=== PATIENT | female | born 1965 | race American Indian/Alaskan Native ===

== ENCOUNTER 2018-05-10 23:15 | Observation (INO) | payer MEDICAID ==
--- NOTE | 2018-05-10 23:55 | Emergency Department Report ---
HPI - General Chief Complaint: Altered Mental Status Time Seen by Provider: 05/10/18 23:41 - HPI HPI: Room 2 The patient is a 52-year-old female presenting with a chief complaint of altered mental status/seizure. The patient was in her usual state of health all day. Family member states that the patient had driven her home at approximately 21:00 and was her normal self. The family member went into the house while the patient remained in the car (family states that this is not unusual). Family states approximately one hour later EMS came to the door and asked her to come out. The patient was found still sitting in the car with decreased responsiveness. EMS felt the patient out of the car when she then collapsed and had a generalized tonic-clonic seizure for several seconds. The patient has a history of end-stage renal disease and states that she was last dialyzed 04/07/2018. Family states they do not believe this is true. Patient has never had a history of seizures Location: Mental state, [facility] Duration: [See above] Quality: Generalized tonic-clonic Severity: Moderate Modifying factors: [see above] Context: [see above] Mode of transportation: [not driving] ED Past Medical Hx - Past Medical History Previous Medical History?: Yes Hx Hypertension: Yes Hx Diabetes: Yes Hx Renal Disease: Yes (HD MWF) - Surgical History Past Surgical History?: No Additional Surgical History: Right groin Vas-cath - Family History Family history: no significant - Social History Smoking Status: Current Every Day Smoker Substance Use Type: Marijuana ED Review of Systems ROS: Stated complaint: SEIZURE/AMS Other details as noted in HPI Constitutional: no symptoms reported Eyes: denies: eye pain ENT: denies: throat pain Respiratory: no symptoms reported Cardiovascular: denies: chest pain Endocrine: no symptoms reported Gastrointestinal: denies: abdominal pain Genitourinary: denies: dysuria Musculoskeletal: denies: back pain Neurological: other (seizure). denies: headache Physical Exam - Physical Exam Vital Signs: Vital Signs 05/10/18 23:27 Temperature 98.3 F Pulse Rate 79 Respiratory 20 Rate Blood Pressure 151/106 O2 Sat by Pulse 97 Oximetry Physical Exam: GENERAL: The patient is well-developed well-nourished female lying on stretcher sleeping appearing slightly postictal. Able to awaken patient easily with tactile stimuli HEENT: Normocephalic. Atraumatic. Extraocular motions are intact. Patient has moist mucous membranes. NECK: Supple. Trachea midline CHEST/LUNGS: Clear to auscultation. There is no respiratory distress noted. HEART/CARDIOVASCULAR: Regular. There is no tachycardia. There is no gallop rub or murmur. ABDOMEN: Abdomen is soft, nontender. Patient has normal bowel sounds. There is no abdominal distention. SKIN: There is no rash. There is no edema. There is no diaphoresis. NEURO: The patient is awake, but slightly postictal and oriented. The patient is cooperative. The patient has no focal neurologic deficits. The patient has normal speech and gait. MUSCULOSKELETAL: There is no evidence of acute injury. ED Course Vital Signs 05/10/18 23:27 Temperature 98.3 F Pulse Rate 79 Respiratory 20 Rate Blood Pressure 151/106 O2 Sat by Pulse 97 Oximetry ED Medical Decision Making - Lab Data Result diagrams: 05/10/18 23:51 05/10/18 23:51 Laboratory Tests 05/10/18 05/10/18 05/10/18 23:51 23:51 23:51 WBC 9.7 RBC 4.62 Hgb 13.9 Hct 41.3 MCV 89 MCH 30 MCHC 34 RDW 13.3 Plt Count 253 Lymph # Sheet Heater Helper Sodium 142 Potassium 3.9 Chloride 102.1 Carbon Dioxide 26 Anion Gap 18 BUN 14 Creatinine 0.9 Estimated GFR > 60 BUN/Creatinine Ratio 16 Glucose 143 H Calcium 8.8 Magnesium Total Bilirubin < 0.20 AST 15 ALT 16 Alkaline Phosphatase 81 Total Creatine Kinase CK-MB (CK-2) CK-MB (CK-2) Rel Index Troponin T Total Protein 6.6 Albumin 3.9 Albumin/Globulin Ratio 1.4 TSH 2.110 Plasma/Serum Alcohol 05/10/18 05/10/18 23:51 23:51 WBC RBC Hgb Hct MCV MCH MCHC RDW Plt Count Lymph # Sodium Potassium Chloride Carbon Dioxide Anion Gap BUN Creatinine Estimated GFR BUN/Creatinine Ratio Glucose Calcium Magnesium 1.90 Total Bilirubin AST ALT Alkaline Phosphatase Total Creatine Kinase 164 H CK-MB (CK-2) 1.1 CK-MB (CK-2) Rel Index 0.6 Troponin T < 0.010 Total Protein Albumin Albumin/Globulin Ratio TSH Plasma/Serum Alcohol < 0.01 - EKG Data -: EKG Interpreted by Ri EKG shows normal: sinus rhythm Rate: normal - EKG Data When compared to previous EKG there are: previous EKG unavailable Interpretation: other (no ischemic changes seen) - Radiology Data Radiology results: report reviewed (CT head), image reviewed (CT head) interpreted by me: Final diagnoses should also include Altered mental status CT head (read by radiologist) - normal examination - Differential Diagnosis ICH, seizure, electrolyte imbalance, uremia Critical care attestation.: If time is entered above; I have spent that time in minutes in the direct care of this critically ill patient, excluding procedure time. ED Disposition Clinical Impression: Seizure Disposition: [id number] OP ADMIT IP TO THIS HOSP Is pt being admited?: Yes Does the pt Need Aspirin: Yes Condition: Fair Time of Disposition: 02:05 (hospitalist paged (Dr. Sandi Angulo))
[2018-05-10] MEDS ORDERED: KEPPRA 1,000 MG/NS 0.75% 100ML 1,000 MG/100 ML BAG IV ONE (23:56)
[2018-05-11 00:24] LABS: Creatine Kinase MB 1.1 ng/mL (0.0-4.0)
[2018-05-11 00:28] LABS: Alanine Aminotransferase 16 units/L (7-56); Albumin 3.9 g/dL (3.9-5); BUN/Creatinine Ratio 16; Blood Urea Nitrogen 14 mg/dL (7-17); Calcium 8.8 mg/dL (8.4-10.2); Hemolysis Index 12
[2018-05-11 01:07] LABS: Hematocrit 41.3 % (30.3-42.9); Hemoglobin 13.9 gm/dl (10.1-14.3); Mean Corpuscular HGB Conc 34 % (30-34); Mean Corpuscular Hemoglobin 30 pg (28-32); Mean Corpuscular Volume 89 fl (79-97); Platelet Count 253 K/mm3 (140-440); Red Blood Count 4.62 M/mm3 (3.65-5.03); Red Cell Distribution Width 13.3 % (13.2-15.2)
--- NOTE | 2018-05-11 02:01 | Cat Scan Report ---
FINAL REPORT PROCEDURE: CT HEAD/BRAIN WO CON TECHNIQUE: Computerized tomography of the head was performed without contrast material. HISTORY: altered mental status, new onset seizure COMPARISON: No prior studies are available for comparison. FINDINGS: Skull and scalp: Normal. Paranasal sinuses: Normal. Ventricles and subarachnoid spaces: Normal. Cerebrum: No evidence of hemorrhage, acute infarction or mass . Cerebellum and brainstem: No evidence of hemorrhage, acute infarction or mass. Vasculature: Normal. Comments: None. IMPRESSION: Normal Examination
[2018-05-11] MEDS ORDERED: ASPIRIN PO ONE (02:06)
[2018-05-11 02:30] LABS: Basophils % (Manual) 0 % (0.0-1.8); Platelet Estimate Consistent w Auto; Total Cells Counted 100
--- NOTE | 2018-05-11 03:14 | History and Physical Report ---
History of Present Illness Date of examination: 05/11/18 History of present illness: 52-year-old woman with a history hypertension, diabetes, end-stage renal disease on dialysis Friday, Friday, Friday was brought to the emergency room by her 2 daughters because she had a seizure at home. EMS found her in the car , she was in there for at least an hour. Patient is unable to give a history, she is very sleepy. Review of systems unobtainable PAST MEDICAL HISTORY: history hypertension, diabetes, end-stage renal disease on dialysis PAST SURGICAL HISTORY: None SOCIAL HISTORY: No alcohol, no drugs,+ tobacco FAMILY HISTORY: Hypertension Medications and Allergies Allergies Allergy/AdvReac Type Severity Reaction Status Date / Time No Known Allergies Allergy Unverified 05/10/18 23:26 Home Medications Medication Instructions Recorded Confirmed Last Taken Type Unobtainable 05/11/18 05/11/18 Unknown History Exam - Physical Exam Narrative exam: Gen. appearance: Patient lying in bed, no apparent distress HEENT: Normocephalic, atraumatic, pupils equally round and reactive to light, extraocular movement intact, and no sclericterus,. No JVD or thyromegaly or nodule,neck supple, no carotid bruit ,mucous membranes moist, no exudate or erythema Heart: S1, S2, regular rate and rhythm Lungs: Clear bilaterally, breathing comfortable Abdomen: Positive bowel sounds, non-tender, nondistended, no organomegaly Extremity:no edema cyanosis, clubbing Skin: no rash, dry, warm Neuro: sedated - Constitutional Vitals: Temp Pulse Resp BP Pulse Ox 98.3 F 78 20 122/70 98 05/10/18 23:27 05/11/18 01:21 05/11/18 01:21 05/11/18 01:21 05/11/18 01:21 Results - Labs CBC & Chem 7: 05/11/18 04:05 05/11/18 04:05 Labs: Abnormal lab results 05/10/18 05/10/18 Range/Units 23:51 23:51 Glucose 143 H (65-100) mg/dL Total Creatine Kinase 164 H (30-135) units/L - Imaging and Cardiology CT Scan - head: report reviewed Assessment and Plan Assessment New-onset seizure Hypertension Diabetes "End-stage renal disease" Plan Admit medicine Start IV Ativan as needed for seizure, consult neurology Check fingersticks and initiate insulin sliding scale Suspect malingering, no signs of renal failure by labs DVT prophylaxis
[2018-05-11] MEDS ORDERED: TYLENOL PO PRN (03:15)
[2018-05-11] MEDS ORDERED: ZOFRAN IV PRN (03:15)
[2018-05-11] MEDS ORDERED: SODIUM CHLORIDE FLUSH SYRINGE 10 ML IV PRN (03:15)
[2018-05-11] MEDS ORDERED: ATIVAN IV PRN (03:19)
[2018-05-11 04:28] LABS: Hematocrit 40.7 % (30.3-42.9); Hemoglobin 13.6 gm/dl (10.1-14.3); Mean Corpuscular HGB Conc 34 % (30-34); Mean Corpuscular Hemoglobin 30 pg (28-32); Mean Corpuscular Volume 89 fl (79-97); Platelet Count 240 K/mm3 (140-440); Red Blood Count 4.58 M/mm3 (3.65-5.03); Red Cell Distribution Width 13.4 % (13.2-15.2)
[2018-05-11 04:31] LABS: Bilirubin,Urine NEG (Negative); Blood,Urine NEG (Negative); Color,Urine Yellow (Yellow); Mucus,Urine 1+ /HPF; Protein,Urine <15 mg/dL mg/dL (Negative); Urobilinogen,Urine < 2.0 mg/dL (<2.0)
[2018-05-11] MEDS ORDERED: D50W (25GM) Syringe IV PRN (04:34)
[2018-05-11 04:35] LABS: BUN/Creatinine Ratio 16; Blood Urea Nitrogen 13 mg/dL (7-17); Calcium 8.6 mg/dL (8.4-10.2); Hemolysis Index 2
[2018-05-11 04:40] LABS: Amphetamine Screen,Urine PRESUMPTIVE NEGATIVE; Cocaine Screen,Urine PRESUMPTIVE NEGATIVE; Methadone Screen,Urine PRESUMPTIVE NEGATIVE; Opiate Screen,Urine PRESUMPTIVE NEGATIVE
[2018-05-11 04:57] LABS: Benzodiazepines Screen,Urine PRESUMPTIVE POSITIVE; Cannabinoid Screen,Urine PRESUMPTIVE POSITIVE
[2018-05-11 05:42] LABS: Platelet Estimate Consistent w Auto; Total Cells Counted 100
[2018-05-11] MEDS: LOVENOX SUB-Q SCH (10:00)
[2018-05-11] MEDS: SODIUM CHLORIDE FLUSH SYRINGE 10 ML IV SCH ×2 (10:00→21:20)
--- NOTE | 2018-05-11 15:42 | Consultation ---
History of Present Illness Consult date: 05/11/18 Requesting physician: ALYSE TEMPLETON Reason for Consult: new onset seizure History of present illness: This is a 52 year old female whowas in her usual stat of health on 05/10/18, running errands and taking care of family. After dropping children off she remained in her car for a long time. Neighbors noticed that she was sitting in the car a long time. They went to check on her and found her unresponsive. They called EMS who tried to get her out of the car. She collapsed, then had generalized seizure. The patient has a history of hypertension and diabetes. She states that she started dialysis one month ago. Laboratory studies, however , are within normal limits. Blood sugar was slightly elevated, BP was 150/106 on admission. The patient complained of headache for the past week. There is no previous history of seizures and no family history of epilepsy. Admission CT was neg. for abnormality, Urine toxicology screen is positive for benzodiazepines. Patient states she takes Valium for anxiety. She does not know the name of her other medications. Past History Past Medical History: diabetes, hypertension Social history: lives with family, smoking (smokes 1/2 PPD for 30 years) Family history: diabetes, hypertension Medications and Allergies Allergies Allergy/AdvReac Type Severity Reaction Status Date / Time No Known Allergies Allergy Unverified 05/10/18 23:26 Home Medications Medication Instructions Recorded Confirmed Last Taken Type Unobtainable 05/11/18 05/11/18 Unknown History Active Meds: Active Medications Acetaminophen (Tylenol) 650 mg PO Q4H PRN PRN Reason: Pain MILD(1-3)/Fever >100.5/FLOWERS Dextrose (D50w (25gm) Syringe) 50 ml IV PRN PRN PRN Reason: Hypoglycemia Enoxaparin Sodium (Lovenox) 40 mg SUB-Q QDAY [facility] Last Admin: 05/11/18 10:00 Dose: Not Given Lorazepam (Ativan) 1 mg IV Q4H PRN PRN Reason: Seizures Ondansetron HCl (Zofran) 4 mg IV Q8H PRN PRN Reason: Nausea And Vomiting Sodium Chloride (Sodium Chloride Flush Syringe 10 Ml) 10 ml IV BID [facility] Last Admin: 05/11/18 10:00 Dose: Not Given Sodium Chloride (Sodium Chloride Flush Syringe 10 Ml) 10 ml IV PRN PRN PRN Reason: LINE FLUSH Review of Systems Constitutional: no weight loss, no weight gain, no fever, no chills, no anorexia , no fatigue, no weakness Ears, nose, mouth and throat: no tinnitis, no decreased hearing, no nasal congestion Cardiovascular: lightheadedness, no chest pain, no palpitations, no rapid/ irregular heart beat, no edema, no syncope Respiratory: no cough, no shortness of breath Gastrointestinal: no abdominal pain, no nausea, no vomiting, no diarrhea, no constipation Genitourinary Female: urinary frequency, no dysuria, no urgency, no stress incontinence Musculoskeletal: no neck stiffness, no neck pain, no arm numbness/tingling, no leg numbness/tingling Integumentary: no rash Neurological: seizures, syncope, vertigo, headaches, no head injury, no weakness , no parathesias, no numbness, no tingling, no tremors, no ataxia, no lack of coordination Physical Examination - Vital Signs Vital Signs: Vital Signs Temp Pulse Resp BP Pulse Ox 98.3 F 79 20 151/106 97 05/10/18 23:27 05/10/18 23:27 05/10/18 23:27 05/10/18 23:27 05/10/18 23:27 - Physical Exam Narrative exam: Resting comfortably in bed. Wanting to go home. Became dizzy when sitting on side of bed. HEENT - no inflamation or lesions. neck supple Chest - clear to auscultation. Heart - nl S-1, S-2. no extra sounds. Abdomen - soft, nontender, no masses. Extremities - no CCE Neurologiic exam - speech fluent, oriented times 3. luggage attendant - EOMs full, no nystagmus. Face symmetric, tongue midline, hearing intact. Motor - 5/5 bilaterally. Reflexes - +1 throughout. Sensory - intact to touch and pin. Cerebellar - intact finger to nose, fine finger movements, Kelley. Results - Laboratory Findings CBC and BMP: 05/11/18 04:05 05/11/18 04:05 Abnormal Lab Findings: Abnormal Labs 05/10/18 05/10/18 05/11/18 23:51 23:51 04:05 Lymphocytes % (Manual) 53.0 H Glucose 143 H Total Creatine Kinase 164 H 05/11/18 04:05 Lymphocytes % (Manual) Glucose 134 H Total Creatine Kinase Assessment and Plan 52 year old female with history of hypertension and diabetes, presents with new onset seizure. History of headache for the past week. History of anxiety. Bloodwork in acceptable ranges. Plan - Will check MRI to rule out mass.
[2018-05-11] MEDS: HumaLOG SUB-Q SCH (21:19)
[2018-05-12 06:14] LABS: Chol/HDL Ratio 6.31 %
[2018-05-12] MEDS: HumaLOG SUB-Q SCH ×3 (07:30→16:30)
[2018-05-12] MEDS: SODIUM CHLORIDE FLUSH SYRINGE 10 ML IV SCH (10:00)
[2018-05-12] MEDS: LOVENOX SUB-Q SCH (10:00)
[2018-05-12 13:11] VITALS: BP 156/99
--- NOTE | 2018-05-12 15:37 | Progress Note ---
Assessment and Plan 52 year old female with history of hypertension and diabetes, presents with new onset seizure. History of headache for the past week. History of anxiety. Bloodwork and blood pressure in acceptable ranges without medication. Patient states that she is claustraphobic and would rather not do MRI scan. Because of the seizure I would still like to get a better imaging study than noncontrast CT. Plan -Will order CT with contrast. Subjective Date of service: 05/12/18 Principal diagnosis: new onset seizure Interval history: Feeling better. Less dizzy when up. Her story keeps changing. Today she says she does not take pills but smokes marijuana for pain control. Denies taking anything on day of admission. Objective - Exam Narrative Exam: Resting comfortably in bed. HEENT - no inflamation or lesions. neck supple Chest - clear to auscultation. Heart - nl S-1, S-2. no extra sounds. Abdomen - soft, nontender, no masses. Extremities - no CCE Neurologiic exam - speech fluent, oriented times 3. chemical operations and training - EOMs full, no nystagmus. Face symmetric, tongue midline, hearing intact. Motor - 5/5 bilaterally. Reflexes - +1 throughout. Sensory - intact to touch and pin. Cerebellar - intact finger to nose, fine finger movements, Kelley. - Vital Sign Vital Signs - 12hr 05/12/18 05/12/18 05/12/18 05:05 10:15 12:45 Temperature 97.7 F 99.2 F Pulse Rate 63 76 Respiratory 16 20 Rate Blood Pressure 138/81 156/99 O2 Sat by Pulse 100 99 93 Oximetry - Laboratory Findings CBC and BMP: 05/11/18 04:05 05/11/18 04:05 Abnormal Lab Findings: Abnormal Labs 05/10/18 05/10/18 05/11/18 23:51 23:51 04:05 Lymphocytes % (Manual) 53.0 H Glucose 143 H POC Glucose Hemoglobin A1c Total Creatine Kinase 164 H Triglycerides Cholesterol LDL Cholesterol Direct 05/11/18 05/11/18 05/12/18 04:05 21:17 04:55 Lymphocytes % (Manual) Glucose 134 H POC Glucose 148 H Hemoglobin A1c 7.0 H Total Creatine Kinase Triglycerides Cholesterol LDL Cholesterol Direct 05/12/18 05/12/18 05/12/18 04:55 08:08 12:00 Lymphocytes % (Manual) Glucose POC Glucose 120 H 140 H Hemoglobin A1c Total Creatine Kinase Triglycerides 172 H Cholesterol 259 H LDL Cholesterol Direct 217 H
--- NOTE | 2018-05-12 15:54 | Progress Note ---
Assessment and Plan Assessment and plan: Patient is a 52 yo woman with a history of hypertension, DM type 2 and ESRD on hemodialysis MWF who presents with AMS and new seizures. EMS found her in the car, she was in there for at least an hour. Assessment New-onset seizure Hypertension Diabetes "End-stage renal disease" Plan Admit medicine Start IV Ativan as needed for seizure, consult neurology Check fingersticks and initiate insulin sliding scale Suspect malingering, no signs of renal failure by labs DVT prophylaxis History Interval history: Patient was seen and examined. Follow-up on current diagnosis of sz, resolved. Overnight uneventful. Patient denies any chest pain, shortness breath, nausea/ vomiting or severe headaches. Imaging, nursing note, chart, labs and old chart reviewed. Discussed with patient. She really doesn't want MRI due to severe claustrophobia, "I don't wanna go in that box!" Counseling and Education done. Hospitalist Physical - Physical exam Narrative exam: GEN: WDWN, NAD, Awake, Alert, Orientated x 3 HEENT: NCAT, EOMI, PERRL, OP Clear NECK: supple, no adenopathy, no thyromegaly, no JVD CVS/HEART: RRR, normal S1S2, pulses present bilaterally CHEST/LUNGS: CTA B, Symmetrical chest expansion, good air entry bilaterally GI/Abdomen: soft, NTND, good bowel sounds, no guarding or rebound /Bladder: no suprapubic tenderness, no CVA or paraspinal tenderness EXT/Skin: no c/c/e, no obvious rash MSK: FROM x 4 Neuro: CN 2-12 grossly intact, no new focal deficits Psych: calm - Constitutional Vitals: Temp Pulse Resp BP Pulse Ox 99.2 F 76 20 156/99 93 05/12/18 12:45 05/12/18 12:45 05/12/18 12:45 05/12/18 12:45 05/12/18 12:45 Results - Labs CBC & Chem 7: 05/11/18 04:05 05/11/18 04:05 Labs: Laboratory Last Values WBC 10.0 K/mm3 (4.5-11.0) 05/11/18 04:05 RBC 4.58 M/mm3 (3.65-5.03) 05/11/18 04:05 Hgb 13.6 gm/dl (10.1-14.3) 05/11/18 04:05 Hct 40.7 % (30.3-42.9) 05/11/18 04:05 MCV 89 fl (79-97) 05/11/18 04:05 MCH 30 pg (28-32) 05/11/18 04:05 MCHC 34 % (30-34) 05/11/18 04:05 RDW 13.4 % (13.2-15.2) 05/11/18 04:05 Plt Count 240 K/mm3 (140-440) 05/11/18 04:05 Lymph % (Auto) Television [employer]ducer 05/11/18 04:05 Lymph # Television [employer] Producer 05/11/18 04:05 Add Manual Diff Complete 05/11/18 04:05 Total Counted 100 05/11/18 04:05 Seg Neuts % (Manual) 41.0 % (40.0-70.0) 05/11/18 04:05 Band Neutrophils % 0 % 05/11/18 04:05 Lymphocytes % (Manual) 53.0 % (13.4-35.0) H 05/11/18 04:05 Reactive Lymphs % (Man) 0 % 05/11/18 04:05 Monocytes % (Manual) 3.0 % (0.0-7.3) 05/11/18 04:05 Eosinophils % (Manual) 2.0 % (0.0-4.3) 05/11/18 04:05 Basophils % (Manual) 1.0 % (0.0-1.8) 05/11/18 04:05 Metamyelocytes % 0 % 05/11/18 04:05 Myelocytes % 0 % 05/11/18 04:05 Promyelocytes % 0 % 05/11/18 04:05 Blast Cells % 0 % 05/11/18 04:05 Nucleated RBC % Not Reportable 05/11/18 04:05 Seg Neutrophils # Man 4.1 K/mm3 (1.8-7.7) 05/11/18 04:05 Band Neutrophils # 0.0 K/mm3 05/11/18 04:05 Lymphocytes # (Manual) 5.3 K/mm3 (1.2-5.4) 05/11/18 04:05 Abs React Lymphs (Man) 0.0 K/mm3 05/11/18 04:05 Monocytes # (Manual) 0.3 K/mm3 (0.0-0.8) 05/11/18 04:05 Eosinophils # (Manual) 0.2 K/mm3 (0.0-0.4) 05/11/18 04:05 Basophils # (Manual) 0.1 K/mm3 (0.0-0.1) 05/11/18 04:05 Metamyelocytes # 0.0 K/mm3 05/11/18 04:05 Myelocytes # 0.0 K/mm3 05/11/18 04:05 Promyelocytes # 0.0 K/mm3 05/11/18 04:05 Blast Cells # 0.0 K/mm3 05/11/18 04:05 WBC Morphology Not Reportable 05/11/18 04:05 Hypersegmented Neuts Not Reportable 05/11/18 04:05 Hyposegmented Neuts Not Reportable 05/11/18 04:05 Hypogranular Neuts Not Reportable 05/11/18 04:05 Smudge Cells Not Reportable 05/11/18 04:05 Toxic Granulation Not Reportable 05/11/18 04:05 Toxic Vacuolation Not Reportable 05/11/18 04:05 Dohle Bodies Not Reportable 05/11/18 04:05 Pelger-Huet Anomaly Not Reportable 05/11/18 04:05 Kiki Rods Not Reportable 05/11/18 04:05 Platelet Estimate Consistent w auto 05/11/18 04:05 Clumped Platelets Not Reportable 05/11/18 04:05 Plt Clumps, EDTA Not Reportable 05/11/18 04:05 Large Platelets Not Reportable 05/11/18 04:05 Giant Platelets Not Reportable 05/11/18 04:05 Platelet Satelliting Not Reportable 05/11/18 04:05 Plt Morphology Comment Not Reportable 05/11/18 04:05 RBC Morphology Not Reportable 05/11/18 04:05 Dimorphic RBCs Not Reportable 05/11/18 04:05 Polychromasia Not Reportable 05/11/18 04:05 Hypochromasia Not Reportable 05/11/18 04:05 Poikilocytosis Not Reportable 05/11/18 04:05 Anisocytosis Not Reportable 05/11/18 04:05 Microcytosis Not Reportable 05/11/18 04:05 Macrocytosis Not Reportable 05/11/18 04:05 Spherocytes Not Reportable 05/11/18 04:05 Pappenheimer Bodies Not Reportable 05/11/18 04:05 Sickle Cells Not Reportable 05/11/18 04:05 Target Cells Not Reportable 05/11/18 04:05 Tear Drop Cells Not Reportable 05/11/18 04:05 Ovalocytes Not Reportable 05/11/18 04:05 Helmet Cells Not Reportable 05/11/18 04:05 [place] Bodies Not Reportable 05/11/18 04:05 [place] Rings Not Reportable 05/11/18 04:05 [place] Cells Not Reportable 05/11/18 04:05 Bite Cells Not Reportable 05/11/18 04:05 Crenated Cell Not Reportable 05/11/18 04:05 Elliptocytes Not Reportable 05/11/18 04:05 Acanthocytes (Spur) Not Reportable 05/11/18 04:05 Rouleaux Not Reportable 05/11/18 04:05 Hemoglobin C Crystals Not Reportable 05/11/18 04:05 Schistocytes Not Reportable 05/11/18 04:05 Malaria parasites Not Reportable 05/11/18 04:05 Jason Bodies Not Reportable 05/11/18 04:05 Hem Pathologist Commnt No 05/11/18 04:05 Sodium 142 mmol/L (137-145) 05/11/18 04:05 Potassium 4.0 mmol/L (3.6-5.0) 05/11/18 04:05 Chloride 104.0 mmol/L (98-107) 05/11/18 04:05 Carbon Dioxide 27 mmol/L (22-30) 05/11/18 04:05 Anion Gap 15 mmol/L 05/11/18 04:05 BUN 13 mg/dL (7-17) 05/11/18 04:05 Creatinine 0.8 mg/dL (0.7-1.2) 05/11/18 04:05 Estimated GFR > 60 ml/min 05/11/18 04:05 BUN/Creatinine Ratio 16 % 05/11/18 04:05 Glucose 134 mg/dL (65-100) H 05/11/18 04:05 POC Glucose 140 (70-105) H 05/12/18 12:00 Hemoglobin A1c 7.0 % (4-6) H 05/12/18 04:55 Calcium 8.6 mg/dL (8.4-10.2) 05/11/18 04:05 Magnesium 1.90 mg/dL (1.7-2.3) 05/10/18 23:51 Total Bilirubin < 0.20 mg/dL (0.1-1.2) 05/10/18 23:51 AST 15 units/L (5-40) 05/10/18 23:51 ALT 16 units/L (7-56) 05/10/18 23:51 Alkaline Phosphatase 81 units/L (35-129) 05/10/18 23:51 Total Creatine Kinase 164 units/L (30-135) H 05/10/18 23:51 CK-MB (CK-2) 1.1 ng/mL (0.0-4.0) 05/10/18 23:51 CK-MB (CK-2) Rel Index 0.6 (0-4) 05/10/18 23:51 Troponin T < 0.010 ng/mL (0.00-0.029) 05/10/18 23:51 Total Protein 6.6 g/dL (6.3-8.2) 05/10/18 23:51 Albumin 3.9 g/dL (3.9-5) 05/10/18 23:51 Albumin/Globulin Ratio 1.4 % 05/10/18 23:51 Triglycerides 172 mg/dL (2-149) H 05/12/18 04:55 Cholesterol 259 mg/dL (50-199) H 05/12/18 04:55 LDL Cholesterol Direct 217 mg/dL (50-130) H 05/12/18 04:55 HDL Cholesterol 41 mg/dL (40-59) 05/12/18 04:55 Cholesterol/HDL Ratio 6.31 % 05/12/18 04:55 TSH 2.110 mlU/mL (0.270-4.200) 05/10/18 23:51 Urine Color Yellow (Yellow) 05/11/18 04:21 Urine Turbidity Slightly-cloudy (Clear) 05/11/18 04:21 Urine pH 5.0 (5.0-7.0) 05/11/18 04:21 Ur Specific [place] 1.023 (1.003-1.030) 05/11/18 04:21 Urine Protein <15 mg/dl mg/dL (Negative) 05/11/18 04:21 Urine Glucose (UA) Neg mg/dL (Negative) 05/11/18 04:21 Urine Ketones Neg mg/dL (Negative) 05/11/18 04:21 Urine Blood Neg (Negative) 05/11/18 04:21 Urine Nitrite Neg (Negative) 05/11/18 04:21 Urine Bilirubin Neg (Negative) 05/11/18 04:21 Urine Urobilinogen < 2.0 mg/dL (<2.0) 05/11/18 04:21 Ur Leukocyte Esterase Sm (Negative) 05/11/18 04:21 Urine WBC (Auto) 6.0 /HPF (0.0-6.0) 05/11/18 04:21 Urine RBC (Auto) 2.0 /HPF (0.0-6.0) 05/11/18 04:21 U Epithel Cells (Auto) 9.0 /HPF (0-13.0) 05/11/18 04:21 Urine Mucus 1+ /HPF 05/11/18 04:21 Urine Opiates Screen Presumptive negative 05/11/18 04:21 Urine Methadone Screen Presumptive negative 05/11/18 04:21 Ur Barbiturates Screen Presumptive negative 05/11/18 04:21 Ur Phencyclidine Scrn Presumptive negative 05/11/18 04:21 Ur Amphetamines Screen Presumptive negative 05/11/18 04:21 U Benzodiazepines Scrn Presumptive positive 05/11/18 04:21 Urine Cocaine Screen Presumptive negative 05/11/18 04:21 U Marijuana (THC) Screen Presumptive positive 05/11/18 04:21 Drugs of Abuse Note Disclamer 05/11/18 04:21 Plasma/Serum Alcohol < 0.01 % (0-0.07) 05/10/18 23:51
--- NOTE | 2018-05-12 17:56 | Event Note ---
Date: 05/12/18 When patient asked about her history of kidney failure requiring dialysis, patient initially denied such history. RN called to room who reminded patient of her reported history of ESRD. Patient stated, "Oh, that was a long time ago ". Labs reviewed - SCr 0.8-0.9mg/dL Will sign off.
--- NOTE | 2018-05-12 18:16 | Cat Scan Report ---
FINAL REPORT PROCEDURE: CT HEAD/BRAIN W CON TECHNIQUE: Computerized tomography of the head was performed following the IV injection of iodinated nonionic contrast. HISTORY: new onset seizure COMPARISON: 05/11/2018 TECHNICAL QUALITY: Satisfactory. FINDINGS: There is no CT evidence of intracranial mass, hemorrhage, acute territorial infarction, or hydrocephalus. No abnormal enhancement is seen. Intracranial arteries are symmetrically enhancing. Calvarium is intact. Visualized paranasal sinuses and mastoids are aerated. IMPRESSION: Unremarkable exam
--- NOTE | 2018-05-13 14:24 | Discharge Summary ---
Providers - Providers Date of Admission: 05/11/18 03:15 Attending physician: KAITLYNN LARSEN 05/11/18 03:15 Consult to Physician [CONS] Routine Comment: Consulting Provider: TAN ALAS Physician Instructions: Reason For Exam: sz 05/12/18 16:07 Consult to Physician [CONS] Routine Comment: Consulting Provider: ALENA AMBROCIO Physician Instructions: Reason For Exam: ESRD on HD mwf, first visit here Primary care physician: COUNTER WEIGHER Hospitalization Condition: Undetermined Hospital course: Patient left AMA per note below: "ILDA ASHER CLAIR Female : 1965 MedRec# [id number] 05/13/18 03:21 - Nurse Note by KEVIN LOCKHART Acct Num: [id number] : 1965 Patient Age: 52 Patient left AMA educated on the need to wait until AM so she could be properly discharged. Patient refused and sign form. INT removed. Patient walk off the unit awake and alert with belongings in hand. MD, Charge nurse and warehouse man made aware. Initialized on 05/13/18 03:21 - END OF NOTE" Disposition: DC-07 LEFT AGAINST MED ADVICE Core Measure Documentation - Palliative Care Palliative Care/ Comfort Measures: Not Applicable - Core Measures Any of the following diagnoses?: none - VTE Discharge Requirements Deep Vein Thrombosis/Pulmonary Embolism Present on Admission: No Has pt received <5 days of overlap therapy or INR<2.0: No Anticoagulant overlap therapy prescribed at discharge: No Contraindication No Overlap Therapy order at DC: Not Indicated Exam - Constitutional Vitals: Temp Pulse Resp BP Pulse Ox 99.2 F 76 20 156/99 93 05/12/18 12:45 05/12/18 12:45 05/12/18 12:45 05/12/18 12:45 05/12/18 12:45 Plan Follow up with: PRIMARY MD JONATHAN [Primary Care Provider] - 3-5 Days Forms: AMA Form
== END 2018-05-12 11:45 | disposition left against medical advice (07) ==
LOC: ED 23:15 → INTOOBSV 05-11 03:15 → 3A 05-11 03:15
PROVIDERS: ADMIT Internal Medicine; ATTEND Internal Medicine
DX: R56.9 Unspecified convulsions (principal); I12.0 Hypertensive chronic kidney disease with stage 5 chronic kidney disease or end stage renal disease; N18.6 End stage renal disease; E11.22 Type 2 diabetes mellitus with diabetic chronic kidney disease; F41.9 Anxiety disorder, unspecified; F17.200 Nicotine dependence, unspecified, uncomplicated; Z82.49 Family history of ischemic heart disease and other diseases of the circulatory system; Z99.2 Dependence on renal dialysis; Z83.3 Family history of diabetes mellitus
CPT/HCPCS: 36415; 70450; 70460; 80048; 80053; 80061; 80307; 81001; 82550; 82553; 82962; 83036; 83735; 84443; 84484; 85007; 85025; 93005; 93010; 96365; 96366; 96374; 99285; G0378; G0480; J1953; Q9967; 80320; J1650